=== PATIENT | female | born 1980 | race Caucasian/White ===

== ENCOUNTER 2018-03-02 08:44 | Outpatient (CLI) | payer OTHER ==
--- NOTE | 2018-03-02 13:02 | DEXA Report ---
Procedure Date: 03/02/2018 Accession Number: [id number] / [id number] Procedure: DEX - Dexa Spine and/or Hip CPT Code: FULL RESULT: EXAM: Dexa Spine and/or Hip DATE: 03/02/2018 9:15 AM CLINICAL HISTORY: OSTEOPENIA TECHNIQUE: Dual energy x-ray absorptiometry (DXA) was performed on a [employer] System. Regions measured are the AP Spine, femoral neck, and if needed forearm. COMPARISON: None. In accordance with the International Society for Clinical Densitometry (ISCD) guidelines, data from previous exams may be reanalyzed using current recommendations and techniques. This is done to allow a more accurate basis for comparison with the current study. FINDINGS: The data for the lumbar spine is as follows: BMD (g/cm/cm) T-SCORE Z-SCORE REGION L1 1.003 -1.1 -1.7 L2 1.191 -0.1 -0.8 L3 1.247 0.4 -0.3 L4 1.209 0.1 -0.6 TOTAL 1.169 -0.1 -0.8 NOTE: All evaluable vertebrae are used for classification The data for the hip is as follows: BMD (g/cm/cm) T-SCORE Z-SCORE REGION Neck 0.901 -1.0 -1.1 TOTAL 0.937 -0.6 -0.9 NOTE: The femoral neck or total proximal femur, whichever is lowest, is used for classification. IMPRESSION: THE WHO CLASSIFICATION BASED ON THE INTERNATIONAL REFERENCE STANDARD IS NORMAL. THE FRACTURE RISK IS NOT INCREASED. RECOMMENDATION: Patients with diagnosis of osteoporosis or osteopenia should have regular bone mineral density assessment. For those eligible for Medicare, routine testing is allowed once every 2 years. Testing frequency can be increased for patients who have rapidly progressing disease or for those who are receiving medical therapy to restore bone mass. COMMENT: World Health Organization (WHO) definitions for osteoporosis and osteopenia: NORMAL BMD: T-score at -1.0 or higher, fracture risk is low OSTEOPENIA BMD: T-score between -1.0 and -2.5, fracture risk is increased. OSTEOPOROSIS BMD: T-score at -2.5 or lower, fracture risk is high. National Osteoporosis Foundation recommends: 1. Obtain adequate dietary calcium (at least 1200 mg per day) and vitamin D (400-800 international units per day). 2. Participate, as appropriate, in regular weightbearing and muscle-strengthening exercise. 3. Avoid tobacco use and reduce alcohol and caffeine intake. 4. For more detailed information see the website at www.NOF.org.
== END 2018-03-02 08:45 | disposition home or self-care (01) ==
LOC: DI 08:44
PROVIDERS: ATTEND Nurse Practitioner Gerontology
DX: M85.80 Other specified disorders of bone density and structure, unspecified site (principal)
CPT/HCPCS: 77080

== ENCOUNTER 2018-04-27 13:53 | Outpatient (CLI) | payer OTHER | END 2018-04-27 13:54 | disposition home or self-care (01) | LOC: LAB.WCP 13:53 | PROVIDERS: ATTEND Physician Assistant Medical | DX: Z33.1 Pregnant state, incidental (principal) | CPT/HCPCS: 36415; 84702 ==

== ENCOUNTER 2018-10-25 08:00 | Outpatient (CLI) | payer OTHER ==
[2018-10-25 14:31] LABS: BASOPHILS % (AUTO) 0.2 %; EOSINOPHILS # (AUTO) 0.1 10^3/uL (0.0-0.7); EOSINOPHILS % (AUTO) 0.8 %; HGB - HEMOGLOBIN 11.8 g/dL (12.0-16.0); LYMPHOCYTES # (AUTO) 1.3 10^3/uL (1.5-3.5); LYMPHOCYTES % (AUTO) 15.5 %; MEAN CORPUSCULAR HEMOGLOBIN 32.4 pg (27.0-31.0); MEAN CORPUSCULAR HGB CONC 34.5 g/dL (32.0-36.0); MEAN CORPUSCULAR VOLUME 93.9 fL (81.0-99.0); MEAN PLATELET VOLUME 9.6 fL (7.9-10.8); MONOCYTES # (AUTO) 0.5 10^3/uL (0.0-1.0); MONOCYTES % (AUTO) 6.1 %; NEUTROPHILS # (AUTO) 6.5 10^3/uL (1.5-6.6); NEUTROPHILS % (AUTO) 77.4 %; PLT - PLATELET COUNT 145 10^3/uL (130-450); RED BLOOD COUNT 3.66 10^6/uL (4.20-5.40); WHITE BLOOD COUNT 8.4 x10^3/uL (4.8-10.8)
[2018-10-25 16:59] LABS: ALBUMIN 3.5 g/dL (3.2-5.5); ALBUMIN/GLOBULIN RATIO 1.1 (1.0-2.2); ALKALINE PHOSPHATASE 61 IU/L (42-121); ALT ALANINE AMINOTRANSFERASE 16 IU/L (10-60); AST ASPARTATE AMINOTRANSFERASE 21 IU/L (10-42); BILIRUBIN,TOTAL 0.5 mg/dL (0.2-1.0); BUN - BLOOD UREA NITROGEN 6 mg/dL (6-20); CALCIUM 8.8 mg/dL (8.5-10.3); CARBON DIOXIDE - CO2 23 mmol/L (21-32); CHLORIDE 105 mmol/L (101-111); CHOL/HDL RATIO 3.2 (<4.4); CHOLESTEROL 238 mg/dL; CREATININE 0.4 mg/dL (0.4-1.0); GFR - MDRD 180 (>89); GLUCOSE 87 mg/dL (70-100); HDL CHOLESTEROL 74 mg/dL; LDL CHOLESTEROL,CALCULATED 132 mg/dL; LDL/HDL RATIO 1.8 (<4.4); SODIUM 136 mmol/L (135-145); TOTAL PROTEIN 6.7 g/dL (6.7-8.2); VLDL CHOLESTEROL 32 mg/dL
== END 2018-10-25 23:59 | disposition home or self-care (01) ==
LOC: LAB.WCP 08:00
PROVIDERS: ATTEND Physician Assistant Medical
DX: Z13.9 Encounter for screening, unspecified (principal)
CPT/HCPCS: 36415; 80050; 80061; 83721

== ENCOUNTER 2020-04-24 08:00 | Outpatient (CLI) | payer OTHER | END 2020-04-24 23:59 | disposition home or self-care (01) | LOC: LAB.R 08:00 | PROVIDERS: ATTEND Physician Assistant Medical | DX: R30.0 Dysuria (principal) | CPT/HCPCS: 87086; 87181 ==

== ENCOUNTER 2020-08-20 07:00 | Outpatient (CLI) | payer OTHER | END 2020-08-20 23:59 | disposition home or self-care (01) | LOC: LAB.R 07:00 | PROVIDERS: ATTEND Family Medicine | DX: N39.0 Urinary tract infection, site not specified (principal) | CPT/HCPCS: 87077; 87086; 87181 ==

== ENCOUNTER 2020-12-13 08:00 | Outpatient (CLI) | payer OTHER ==
[2020-12-13 13:05] LABS: BASOPHILS % (AUTO) 0.4 %; EOSINOPHILS # (AUTO) 0.1 10^3/uL (0.0-0.7); EOSINOPHILS % (AUTO) 4.9 %; HCT - HEMATOCRIT 40.8 % (37.0-47.0); HGB - HEMOGLOBIN 13.4 g/dL (12.0-16.0); LYMPHOCYTES # (AUTO) 0.7 10^3/uL (1.5-3.5); MEAN CORPUSCULAR HEMOGLOBIN 34.4 pg (27.0-31.0); MEAN CORPUSCULAR HGB CONC 32.8 g/dL (32.0-36.0); MEAN CORPUSCULAR VOLUME 104.9 fL (81.0-99.0); MEAN PLATELET VOLUME 11.8 fL (7.9-10.8); MONOCYTES # (AUTO) 0.4 10^3/uL (0.0-1.0); MONOCYTES % (AUTO) 13.3 %; NEUTROPHILS # (AUTO) 1.4 10^3/uL (1.5-6.6); NEUTROPHILS % (AUTO) 53.4 %; PLT - PLATELET COUNT 113 10^3/uL (130-450); RED BLOOD COUNT 3.89 10^6/uL (4.20-5.40); RED CELL DISTRIBUTION WIDTH 12.2 % (12.0-15.0); WHITE BLOOD COUNT 2.6 x10^3/uL (4.8-10.8)
[2020-12-13 13:11] LABS: SLIDE REVIEW? Indicated
[2020-12-13 13:23] LABS: ALBUMIN 4.4 g/dL (3.2-5.5); ALBUMIN/GLOBULIN RATIO 1.6 (1.0-2.2); ALKALINE PHOSPHATASE 53 IU/L (42-121); ALT ALANINE AMINOTRANSFERASE 91 IU/L (10-60); AST ASPARTATE AMINOTRANSFERASE 63 IU/L (10-42); BILIRUBIN,TOTAL 1.1 mg/dL (0.2-1.0); BUN - BLOOD UREA NITROGEN 9 mg/dL (6-20); CALCIUM 9.1 mg/dL (8.5-10.3); CARBON DIOXIDE - CO2 25 mmol/L (21-32); CHLORIDE 105 mmol/L (101-111); CHOL/HDL RATIO 1.9 (<4.4); CHOLESTEROL 176 mg/dL; CREATININE 0.6 mg/dL (0.4-1.0); GFR - MDRD 111 (>89); GLUCOSE 119 mg/dL (70-100); HDL CHOLESTEROL 93 mg/dL; LDL CHOLESTEROL,CALCULATED 74 mg/dL; LDL/HDL RATIO 0.8 (<4.4); POTASSIUM 4.2 mmol/L (3.5-5.0); SODIUM 138 mmol/L (135-145); TOTAL PROTEIN 7.2 g/dL (6.7-8.2); TRIGLYCERIDES 44 mg/dL; VLDL CHOLESTEROL 9 mg/dL
[2020-12-13 13:24] LABS: PLATELET ESTIMATE, MANUAL DECREASED (<130,000) (NORMAL); PLATELET MORPHOLOGY NORMAL APPEARANCE (NORMAL); RBC MORPHOLOGY (MULTIPLE) NORMAL APPEARANCE (NORMAL); WBC MORPHOLOGY (MULTIPLE) NORMAL APPEARANCE (NORMAL)
[2020-12-13 13:27] LABS: THYROID STIMULATING HORMONE 1.74 uIU/mL (0.34-5.60)
== END 2020-12-13 23:59 | disposition home or self-care (01) ==
LOC: LAB.WCP 08:00
PROVIDERS: ATTEND Physician Assistant Medical
DX: Z13.9 Encounter for screening, unspecified (principal)
CPT/HCPCS: 36415; 80050; 80061; 83721

== ENCOUNTER 2021-03-10 08:00 | Outpatient (CLI) | payer OTHER ==
[2021-03-10 12:42] LABS: BASOPHILS % (AUTO) 0.6 %; EOSINOPHILS # (AUTO) 0.2 10^3/uL (0.0-0.7); EOSINOPHILS % (AUTO) 4.9 %; HGB - HEMOGLOBIN 14.7 g/dL (12.0-16.0); LYMPHOCYTES # (AUTO) 0.8 10^3/uL (1.5-3.5); LYMPHOCYTES % (AUTO) 25.5 %; MEAN CORPUSCULAR HEMOGLOBIN 35.5 pg (27.0-31.0); MEAN CORPUSCULAR HGB CONC 33.4 g/dL (32.0-36.0); MEAN CORPUSCULAR VOLUME 106.3 fL (81.0-99.0); MEAN PLATELET VOLUME 10.9 fL (7.9-10.8); MONOCYTES # (AUTO) 0.4 10^3/uL (0.0-1.0); MONOCYTES % (AUTO) 13.4 %; NEUTROPHILS # (AUTO) 1.8 10^3/uL (1.5-6.6); NEUTROPHILS % (AUTO) 55.3 %; PLT - PLATELET COUNT 182 10^3/uL (130-450); RED BLOOD COUNT 4.14 10^6/uL (4.20-5.40); RED CELL DISTRIBUTION WIDTH 12.4 % (12.0-15.0); WHITE BLOOD COUNT 3.3 x10^3/uL (4.8-10.8)
[2021-03-10 12:59] LABS: ALBUMIN 4.6 g/dL (3.2-5.5); ALBUMIN/GLOBULIN RATIO 1.5 (1.0-2.2); BILIRUBIN,TOTAL 0.9 mg/dL (0.2-1.0); CALCIUM 9.4 mg/dL (8.5-10.3); CREATININE 0.8 mg/dL (0.4-1.0); POTASSIUM 4.2 mmol/L (3.5-5.0); TOTAL PROTEIN 7.6 g/dL (6.7-8.2)
[2021-03-10 19:23] LABS: ESTIMATED AVERAGE GLUCOSE 100 mg/dL (70-100); HEMOGLOBIN A1c% 5.1 % (4.27-6.07)
== END 2021-03-10 23:59 | disposition home or self-care (01) ==
LOC: LAB.WCP 08:00
PROVIDERS: ATTEND Physician Assistant Medical
DX: R73.9 Hyperglycemia, unspecified (principal); R74.8 Abnormal levels of other serum enzymes; D72.819 Decreased white blood cell count, unspecified
CPT/HCPCS: 36415; 80053; 83036; 85025

== ENCOUNTER 2021-08-19 08:00 | Outpatient (CLI) | payer OTHER | END 2021-08-19 23:59 | LOC: LAB.N 08:00 | PROVIDERS: ATTEND Physician Assistant | DX: R39.9 Unspecified symptoms and signs involving the genitourinary system (principal) | CPT/HCPCS: 87086 ==

== ENCOUNTER 2021-08-26 08:00 | Outpatient (CLI) | payer OTHER ==
[2021-08-26 11:36] LABS: BASOPHILS % (AUTO) 0.8 %; EOSINOPHILS # (AUTO) 0.2 10^3/uL (0.0-0.7); EOSINOPHILS % (AUTO) 4.2 %; HCT - HEMATOCRIT 43.2 % (37.0-47.0); HGB - HEMOGLOBIN 14.5 g/dL (12.0-16.0); LYMPHOCYTES # (AUTO) 1.2 10^3/uL (1.5-3.5); LYMPHOCYTES % (AUTO) 32.3 %; MEAN CORPUSCULAR HEMOGLOBIN 35.1 pg (27.0-31.0); MEAN CORPUSCULAR HGB CONC 33.6 g/dL (32.0-36.0); MEAN CORPUSCULAR VOLUME 104.6 fL (81.0-99.0); MEAN PLATELET VOLUME 10.9 fL (7.9-10.8); MONOCYTES # (AUTO) 0.4 10^3/uL (0.0-1.0); MONOCYTES % (AUTO) 10.5 %; NEUTROPHILS % (AUTO) 51.9 %; PLT - PLATELET COUNT 155 10^3/uL (130-450); RED BLOOD COUNT 4.13 10^6/uL (4.20-5.40); RED CELL DISTRIBUTION WIDTH 11.9 % (12.0-15.0); WHITE BLOOD COUNT 3.8 x10^3/uL (4.8-10.8)
[2021-08-26 12:14] LABS: ALBUMIN 4.8 g/dL (3.2-5.5); ALBUMIN/GLOBULIN RATIO 1.6 (1.0-2.2); BILIRUBIN,TOTAL 0.9 mg/dL (0.2-1.0); CALCIUM 9.1 mg/dL (8.5-10.3); CREATININE 0.7 mg/dL (0.4-1.0); TOTAL PROTEIN 7.8 g/dL (6.7-8.2)
[2021-08-26 12:46] LABS: ESTIMATED AVERAGE GLUCOSE 97 mg/dL (70-100)
[2021-08-27 09:21] LABS: HEPATITIS C ANTIBODY NON-REACTIVE (NON-REACTIVE)
[2021-08-27 09:22] LABS: HEPATITIS B SURFACE ANTIGEN NON-REACTIVE (NON-REACTIVE)
== END 2021-08-26 23:59 | disposition home or self-care (01) ==
LOC: LAB.WCP 08:00
PROVIDERS: ATTEND Physician Assistant Medical
DX: R73.9 Hyperglycemia, unspecified (principal); R74.8 Abnormal levels of other serum enzymes; D72.819 Decreased white blood cell count, unspecified
CPT/HCPCS: 36415; 80053; 83036; 85025; 86317; 86704; 86709; 86803; 87340

== ENCOUNTER 2021-09-15 07:42 | Outpatient (CLI) | payer OTHER ==
--- NOTE | 2021-09-15 09:24 | Ultrasound Report ---
PROCEDURE: Abdomen Limited INDICATIONS: ELEVATED LIVER ENZYMES TECHNIQUE: Real-time scanning was performed of the abdominal and retroperitoneal organs, with image documentatio n. COMPARISON: None. FINDINGS: Liver: Liver is enlarged measuring 19.3 cm and demonstrates increased echogenicity.. Gallbladder: Gallbladder is trace no stones. Wall thickness measures 1.4 mm. Biliary ducts: Intrahepatic bile ducts are non-dilated. Extrahepatic bile duct caliber measures 4.6 mm. Normal is 6-7 mm or less in diameter, or 10 mm or less post-cholecystectomy. Pancreas: Visualized portions of the pancreas are sonographically normal. Kidneys: Right kidney measures 11.2 cm long. No hydronephrosis or nephrolithiasis. No solid masses . Aorta: Visualized aorta is normal in caliber at less than 3 cm. IMPRESSION: Hepatomegaly with steatosis. Reviewed by: Lis Rincon MD on 09/15/2021 9:23 AM PST Approved by: Lis Rincon MD on 09/15/2021 9:23 AM PST Station ID: [id number]
== END 2021-09-15 07:43 | disposition home or self-care (01) ==
LOC: DI 07:42
PROVIDERS: ATTEND Physician Assistant Medical
DX: R74.8 Abnormal levels of other serum enzymes (principal); K76.0 Fatty (change of) liver, not elsewhere classified; R16.0 Hepatomegaly, not elsewhere classified

== ENCOUNTER 2021-12-29 11:03 | Outpatient (CLI) | payer OTHER ==
--- NOTE | 2021-12-30 16:06 | Mammography Report ---
BILATERAL DIGITAL SCREENING MAMMOGRAM 3D/2D: 12/29/2021 CLINICAL: Baseline exam Routine screening. No prior exams were available for comparison. The tissue of both breasts is heterogeneously dense. T his may lower the sensitivity of mammography. There is a 0.8 cm x 0.5 cm oval mass with a microlobulated margin in the right breast at 7 o'clock mi ddle depth 8 cm from the nipple. There also is a benign lymph node in the right breast at 11 o'clock posterior depth. There is a benign lymph node in the left breast at 1 o'clock middle depth. No other significant masses or calcifications are seen in either breast. IMPRESSION: INCOMPLETE: NEEDS ADDITIONAL IMAGING EVALUATION The 0.8 cm x 0.5 cm oval mass in the right breast at 7 o'clock middle depth is consistent with a sandro d mass or a lymph node and is indeterminate. Additional views with possible ultrasound are recommend ed. This exam was interpreted at Station ID: [id number]. NOTE: For mammograms, a report in lay terms will be sent to the patient. Approximately 15% of breast malignancies will not be visualized mammographically. In the management of a palpable breast mass, a negative mammogram must not discourage biopsy of a clinically suspicious lesion. Electronically Signed By: Loki Victoria acr/:12/29/2021 15:14:27 ACR BI-RADS Category 0: Incomplete 3340F PARENCHYMAL PATTERN: (D) - The breast(s) demonstrate(s) heterogeneously dense fibroglandular parenchy ma. BI-RADS CATEGORY: (0) - 0 Mammo and [place] [id number] Immediate follow-up LATERALITY: (R)
== END 2021-12-29 11:04 | disposition home or self-care (01) ==
LOC: DI.N 11:03
PROVIDERS: ATTEND Physician Assistant Medical
DX: Z12.31 Encounter for screening mammogram for malignant neoplasm of breast (principal); R92.8 Other abnormal and inconclusive findings on diagnostic imaging of breast

== ENCOUNTER 2022-08-26 07:05 | Outpatient (CLI) | payer OTHER ==
[2022-08-26 07:48] LABS: BASOPHILS % (AUTO) 0.5 %; EOSINOPHILS # (AUTO) 0.2 10^3/uL (0.0-0.7); EOSINOPHILS % (AUTO) 4.8 %; HGB - HEMOGLOBIN 14.4 g/dL (12.0-16.0); LYMPHOCYTES # (AUTO) 1.2 10^3/uL (1.5-3.5); LYMPHOCYTES % (AUTO) 31.3 %; MEAN CORPUSCULAR HEMOGLOBIN 34.4 pg (27.0-31.0); MEAN CORPUSCULAR HGB CONC 32.7 g/dL (32.0-36.0); MONOCYTES # (AUTO) 0.5 10^3/uL (0.0-1.0); MONOCYTES % (AUTO) 12.8 %; NEUTROPHILS # (AUTO) 1.9 10^3/uL (1.5-6.6); NEUTROPHILS % (AUTO) 50.3 %; PLT - PLATELET COUNT 133 10^3/uL (130-450); RED BLOOD COUNT 4.19 10^6/uL (4.20-5.40); RED CELL DISTRIBUTION WIDTH 12.4 % (12.0-15.0); WHITE BLOOD COUNT 3.7 x10^3/uL (4.8-10.8)
[2022-08-26 08:07] LABS: ALBUMIN/GLOBULIN RATIO 1.7 (1.0-2.2); ALKALINE PHOSPHATASE 57 IU/L (42-121); ALT ALANINE AMINOTRANSFERASE 144 IU/L (10-60); AST ASPARTATE AMINOTRANSFERASE 114 IU/L (10-42); BILIRUBIN,TOTAL 1.3 mg/dL (0.2-1.0); BUN - BLOOD UREA NITROGEN 11 mg/dL (6-20); CALCIUM 9.2 mg/dL (8.5-10.3); CARBON DIOXIDE - CO2 27 mmol/L (21-32); CHLORIDE 101 mmol/L (101-111); CHOL/HDL RATIO 2.5 (<4.4); CHOLESTEROL 234 mg/dL; CREATININE 0.6 mg/dL (0.4-1.0); GFR - MDRD 110 (>89); GLUCOSE 116 mg/dL (70-100); HDL CHOLESTEROL 95 mg/dL; LDL CHOLESTEROL,CALCULATED 130 mg/dL; LDL/HDL RATIO 1.4 (<4.4); POTASSIUM 4.7 mmol/L (3.5-5.0); SODIUM 138 mmol/L (135-145); TRIGLYCERIDES 46 mg/dL; VLDL CHOLESTEROL 9 mg/dL
[2022-08-26 08:18] LABS: THYROID STIMULATING HORMONE 1.49 uIU/mL (0.34-5.60)
[2022-08-26 08:33] LABS: ESTIMATED AVERAGE GLUCOSE 97 mg/dL (70-100)
--- NOTE | 2022-08-26 14:09 | Ultrasound Report ---
PROCEDURE: Abdomen Limited INDICATIONS: ELEVATED LIVER ENZYMES TECHNIQUE: Real-time focused scanning was performed of the abdomen, with image documentation. COMPARISON: None FINDINGS: Liver: Liver shows diffusely decreased attenuation without focal mass lesion. Gallbladder: Sonolucent without cholelithiasis. No gallbladder wall thickening. No pericholecystic fluid or Patel's sign. Common Bile Duct: 4.7 mm. Pancreas: Unremarkable as visualized. Right Kidney: Appropriate in size and echotexture. No evidence of hydronephrosis. No shadowing calc alfie. No solid or cystic mass lesion. IMPRESSION: Hepatic fatty infiltration without focal mass lesion Reviewed by: Zak Prieto MD on 08/26/2022 1:08 PM AKST Approved by: Zak Prieto MD on 08/26/2022 1:08 PM AKST Station ID: [id number]
== END 2022-08-26 07:06 | disposition home or self-care (01) ==
LOC: DI 07:05
PROVIDERS: ATTEND Physician Assistant Medical
DX: K76.0 Fatty (change of) liver, not elsewhere classified (principal); Z13.9 Encounter for screening, unspecified; R73.9 Hyperglycemia, unspecified
CPT/HCPCS: 36415; 80050; 80061; 83036; 83721

== ENCOUNTER 2022-11-28 13:45 | Outpatient (CLI) | payer OTHER ==
[2022-11-28 19:19] LABS: BASOPHILS % (AUTO) 0.4 %; EOSINOPHILS # (AUTO) 0.3 10^3/uL (0.0-0.7); EOSINOPHILS % (AUTO) 6.1 %; HCT - HEMATOCRIT 42.8 % (37.0-47.0); HGB - HEMOGLOBIN 14.3 g/dL (12.0-16.0); LYMPHOCYTES # (AUTO) 1.2 10^3/uL (1.5-3.5); LYMPHOCYTES % (AUTO) 24.2 %; MEAN CORPUSCULAR HEMOGLOBIN 34.5 pg (27.0-31.0); MEAN CORPUSCULAR HGB CONC 33.4 g/dL (32.0-36.0); MEAN CORPUSCULAR VOLUME 103.4 fL (81.0-99.0); MEAN PLATELET VOLUME 11.7 fL (7.9-10.8); MONOCYTES # (AUTO) 0.6 10^3/uL (0.0-1.0); MONOCYTES % (AUTO) 11.6 %; NEUTROPHILS # (AUTO) 2.8 10^3/uL (1.5-6.6); NEUTROPHILS % (AUTO) 57.5 %; PLT - PLATELET COUNT 153 10^3/uL (130-450); RED BLOOD COUNT 4.14 10^6/uL (4.20-5.40); RED CELL DISTRIBUTION WIDTH 12.3 % (12.0-15.0); WHITE BLOOD COUNT 4.9 x10^3/uL (4.8-10.8)
[2022-11-28 19:52] LABS: ALBUMIN/GLOBULIN RATIO 1.8 (1.0-2.2); ALKALINE PHOSPHATASE 65 IU/L (42-121); ALT ALANINE AMINOTRANSFERASE 175 IU/L (10-60); AST ASPARTATE AMINOTRANSFERASE 130 IU/L (10-42); BILIRUBIN,TOTAL 0.9 mg/dL (0.2-1.0); BUN - BLOOD UREA NITROGEN 11 mg/dL (6-20); CALCIUM 9.5 mg/dL (8.5-10.3); CARBON DIOXIDE - CO2 26 mmol/L (21-32); CHLORIDE 106 mmol/L (101-111); CREATININE 0.6 mg/dL (0.4-1.0); GFR - MDRD 110 (>89); GLUCOSE 108 mg/dL (70-100); LIPASE 41 U/L (22-51); SODIUM 137 mmol/L (135-145); TOTAL PROTEIN 7.8 g/dL (6.7-8.2)
[2022-11-28 19:53] LABS: CRP - C-REACTIVE PROTEIN < 1.0 mg/dL (0-1.0)
== END 2022-11-28 14:00 | disposition home or self-care (01) ==
LOC: LAB.N 13:45
PROVIDERS: ATTEND Registered Nurse
DX: K62.5 Hemorrhage of anus and rectum (principal); R10.11 Right upper quadrant pain
CPT/HCPCS: 36415; 80053; 83690; 85025; 86140

== ENCOUNTER 2023-01-20 10:49 | Emergency (ER) | payer OTHER ==
[2023-01-20 11:23] LABS: BASOPHILS % (AUTO) 0.3 %; EOSINOPHILS # (AUTO) 0.1 10^3/uL (0.0-0.7); EOSINOPHILS % (AUTO) 3.4 %; HCT - HEMATOCRIT 41.9 % (37.0-47.0); HGB - HEMOGLOBIN 14.2 g/dL (12.0-16.0); LYMPHOCYTES # (AUTO) 0.8 10^3/uL (1.5-3.5); LYMPHOCYTES % (AUTO) 21.9 %; MEAN CORPUSCULAR HEMOGLOBIN 35.2 pg (27.0-31.0); MEAN CORPUSCULAR HGB CONC 33.9 g/dL (32.0-36.0); MEAN PLATELET VOLUME 10.5 fL (7.9-10.8); MONOCYTES # (AUTO) 0.4 10^3/uL (0.0-1.0); NEUTROPHILS # (AUTO) 2.3 10^3/uL (1.5-6.6); NEUTROPHILS % (AUTO) 63.4 %; PLT - PLATELET COUNT 125 10^3/uL (130-450); RED BLOOD COUNT 4.03 10^6/uL (4.20-5.40); WHITE BLOOD COUNT 3.6 x10^3/uL (4.8-10.8)
[2023-01-20 11:35] LABS: ALBUMIN 4.7 g/dL (3.2-5.5); ALBUMIN/GLOBULIN RATIO 1.4 (1.0-2.2); BILIRUBIN,TOTAL 1.3 mg/dL (0.2-1.0); CREATININE 0.5 mg/dL (0.4-1.0); POTASSIUM 3.7 mmol/L (3.5-5.0); TOTAL PROTEIN 8.1 g/dL (6.7-8.2)
[2023-01-20] MEDS ORDERED: ONDANSETRON 4 MG/2 ML VIAL IVP STA (11:36)
[2023-01-20] MEDS ORDERED: SODIUM CHLORIDE 0.9% 1,000 ML IV STA (11:36)
--- NOTE | 2023-01-20 11:40 | ED Physician Documentation ---
History of Present Illness - Stated complaint Stated Complaint: DEHYDRATION - Chief complaint Chief Complaint: Abd Pain - Additonal information Additional information: 42-year-old female presents emergency department for concerns that she is excessively dehydrated. She reports that over the weekend she, her friends and family drank heavily. Since Wednesday multiple friends and family members have been having vomiting and diarrhea. Patient reports bright yellow diarrhea. She has not had diarrhea this morning and no vomiting since yesterday afternoon. Anytime she tries to eat she is nauseated. Patient denies melena, hematochezia or hemataemesis Patient does report to me that she has a history of abnormal and elevated liver function test. Reports she has been referred to GI but has not followed up. She has been told that it may be due to her drinking but it could also be BURGESS. Patient states she has not drank since Wednesday night. Has no signs of withdrawal. Has no history of DTs associate with alcohol cessation. Patient reports she spoke with her primary care provider I was told to come to the ER for thiamine/folate infusion. Patient is without fever, abdominal pain or altered mental status Review of Systems Constitutional: denies: Fever Throat: reports: Reviewed and negative Cardiac: reports: Reviewed and negative Respiratory: reports: Reviewed and negative GI: reports: Nausea, Vomiting, Diarrhea. denies: Abdominal Pain, Hematemesis, Bloody / black stool : reports: Reviewed and negative Skin: reports: Reviewed and negative Musculoskeletal: reports: Reviewed and negative Neurologic: reports: Reviewed and negative PD PAST MEDICAL HISTORY - Past Medical History Musculoskeletal: Osteoporosis - Past Surgical History Past Surgical History: Yes - Present Medications Home Medications: Ambulatory Orders Medication Instructions Recorded Confirmed Fluoxetine HCl [Prozac] 10 mg PO 09/21/13 03/28/15 Spironolactone 25 mg PO BID 09/21/13 03/28/15 Hydrocodone/Acetaminophen 1 each PO Q6HR PRN #20 tablet 03/28/15 [Hydrocodon-Acetaminophen 5-325] Ondansetron Odt [Zofran] 4 mg TL Q6H PRN #10 tablet 01/20/23 - Allergies Allergies/Adverse Reactions: Allergies Allergy/AdvReac Type Severity Reaction Status Date / Time NSAIDS (Non-Steroidal Allergy Unknown Verified 01/20/23 10:53 Anti-Inflamma - Social History Does the pt smoke?: No Smoking Status: Never smoker Does the pt drink ETOH?: Yes Does the pt have substance abuse?: No - Immunizations Immunizations are current?: Yes - POLST Patient has POLST: No PD ED PE NORMAL - General General: Alert and oriented X 3, No acute distress, Well developed/nourished - HEENT HEENT: Atraumatic, Moist mucous membranes - Neck Neck: Supple, no meningeal sign, No adenopathy - Cardiac Cardiac: RRR, No murmur - Respiratory Respiratory: No respiratory distress, Clear bilaterally - Abdomen Abdomen: Normal bowel sounds, Soft, Non tender (No tenderness elicited with light or deep palpation. 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 Eye Opening: Spontaneous Motor: Obeys Commands Verbal: Oriented GCS Score: 15 Results - Vitals Vitals: Vital Signs - 24 hr 01/20/23 01/20/23 10:53 11:26 Temperature 36.5 C Heart Rate 82 87 Respiratory 18 15 Rate Blood Pressure 150/100 H 139/95 H O2 Saturation 99 97 Oxygen O2 Source Room air - Labs Labs: Laboratory Tests 01/20/23 01/20/23 01/20/23 11:17 11:17 11:39 WBC 3.6 L RBC 4.03 L Hgb 14.2 Hct 41.9 MCV 104.0 H MCH 35.2 H MCHC 33.9 RDW 12.0 Plt Count 125 L MPV 10.5 Neut # (Auto) 2.3 Lymph # (Auto) 0.8 L [place] # (Auto) 0.4 Eos # (Auto) 0.1 Baso # (Auto) 0.0 Absolute Nucleated RBC 0.00 Nucleated RBC % 0.0 Sodium 135 Potassium 3.7 Chloride 102 Carbon Dioxide 24 Anion Gap 9.0 BUN 6 Creatinine 0.5 Estimated GFR (MDRD) 135 Glucose 108 H Calcium 9.0 Total Bilirubin 1.3 H AST 157 H ALT 165 H Alkaline Phosphatase 66 Total Protein 8.1 Albumin 4.7 Globulin 3.4 Albumin/Globulin Ratio 1.4 Lipase 36 Urine Color YELLOW Urine Clarity CLEAR Urine pH 8.0 H Ur Specific [place] 1.020 Urine Protein NEGATIVE Urine Glucose (UA) NEGATIVE Urine Ketones 40 H Urine Occult Blood NEGATIVE Urine Nitrite NEGATIVE Urine Bilirubin NEGATIVE Urine Urobilinogen 1 (NORMAL) Ur Leukocyte Esterase NEGATIVE Ur Microscopic Review NOT INDICATED Urine Culture Comments NOT INDICATED Urine HCG, Qual 01/20/23 11:39 WBC RBC Hgb Hct MCV MCH MCHC RDW Plt Count MPV Neut # (Auto) Lymph # (Auto) [place] # (Auto) Eos # (Auto) Baso # (Auto) Absolute Nucleated RBC Nucleated RBC % Sodium Potassium Chloride Carbon Dioxide Anion Gap BUN Creatinine Estimated GFR (MDRD) Glucose Calcium Total Bilirubin AST ALT Alkaline Phosphatase Total Protein Albumin Globulin Albumin/Globulin Ratio Lipase Urine Color Urine Clarity Urine pH Ur Specific [place] Urine Protein Urine Glucose (UA) Urine Ketones Urine Occult Blood Urine Nitrite Urine Bilirubin Urine Urobilinogen Ur Leukocyte Esterase Ur Microscopic Review Urine Culture Comments Urine HCG, Qual NEGATIVE PD Medical Decision Making - ED course Complexity details: reviewed results, re-evaluated patient, d/w patient ED course: 42-year-old female presents emergency department for concerns of dehydration in the setting of vomiting and diarrhea that she had for 2 days. No vomiting since last night no diarrhea since early this a.m. Multiple family members including her young daughter at home have had similar. As such I suspect that this is a viral enteritis. On presentation the patient is alert and well-appearing. She has no tachycardia or hypotension. No fevers. Patient is concerned that the drinking this weekend could be causative of her vomiting and diarrhea. She is also concerned because she has been told she has elevated liver tests in the past and has referral to GI pending. I did obtain a CBC and electrolytes. Per my interpretation there is no worrisome anemia. White blood cell count mildly decreased but this appears unchanged from baseline. She does not have thrombocytopenia. Her electrolytes show a normal BUN and creatinine. She does have elevated T. bili of 1.3. Historically she is been 0.9-1.3. She does have an AST ALT elevation of 157 and 165 respectively. In comparison to previous labs, essentially unchanged. The patient queries whether she has alcoholic hepatitis or BURGESS. Given that the elevation is symmetrical I suspect this is more likely BURGESS though the history of heavy drinking is likely contributing. I deferred any imaging today as the abnormal liver function test are not new. In addition there was no abdominal tenderness elicited on exam making the likelihood of acute cholecystitis unlikely Here in the emergency department I did give the patient a liter of IV fluids as well as some Zofran and on reevaluation her nausea is improved. Patient did request thiamine and folate supplementation though as she does not appear encephalopathic I did not feel this was warranted today. She is tolerating sips of clear liquids at this time I offered the patient [facility] resources to consider alcohol cessation though she declines. Denies any history of DTs. She will continue to follow closely with the GI referral already pending. I encouraged the patient to abstain from alcohol if able as this is likely contributing to her symptoms. The usual emergent return precautions were discussed. Departure - Departure Disposition: 01 Home, Self Care Clinical Impression: Nausea vomiting and diarrhea, Abnormal LFTs (liver function tests), Alcohol abuse Condition: Stable Prescriptions: Ondansetron Odt [Zofran] 4 mg TL Q6H PRN #10 tablet PRN Reason: Nausea / Vomiting Comments: Marilynn you came to the emergency department today because your provider recommended you receive some IV fluids for dehydration. You do report drinking heavily this weekend. You report that multiple family members as well as friends have had vomiting and diarrhea. You all are likely sharing the same virus causing the vomiting and diarrhea. However your particular with concern also focused on history of abnormal liver function test. It is not clear to us today if your LFT abnormalities are due to fatty liver or if this could also be worsened by history of alcohol abuse. I encourage you to discontinue drinking. Continue to follow closely with the hot plate press operator that you have been referred to. I have written a prescription for Zofran, nausea medicine and sent to the [facility] in [place]. You should take this 2-3 times a day for the next 24 hours. I recommend frequent sips of water, broth, Gatorade or juice. As your nausea and hydration improved, begin eating simple soup foods like bananas, rice, applesauce and toast Return to the emergency department if you have uncontrolled symptoms despite the Zofran, have any black or bloody stools.
[2023-01-20 11:49] LABS: BILIRUBIN,URINE NEGATIVE (NEGATIVE); GLUCOSE, URINE (UA) NEGATIVE (NEGATIVE); KETONES,URINE (UA) 40 mg/dL (NEGATIVE); LEUKOCYTE ESTERASE, URINE NEGATIVE (NEGATIVE); NITRITE,URINE NEGATIVE (NEGATIVE); OCCULT BLOOD,URINE NEGATIVE (NEGATIVE); PROTEIN,URINE NEGATIVE (NEGATIVE); UROBILINOGEN,URINE 1 (NORMAL) E.U./dL (NORMAL)
[2023-01-20 11:50] LABS: CLARITY,URINE CLEAR (CLEAR)
[2023-01-20 12:19] LABS: HCG UR QUAL NEGATIVE
[2023-01-20 12:44] VITALS: BP 136/91
== END 2023-01-20 12:45 | disposition home or self-care (01) ==
LOC: ED 10:49
DX: R11.2 Nausea with vomiting, unspecified (principal); R19.7 Diarrhea, unspecified; R74.01 Elevation of levels of liver transaminase levels; F10.10 Alcohol abuse, uncomplicated
CPT/HCPCS: 36415; 80053; 81001; 81003; 81025; 83690; 85025; 87086; 96374; 99284

== ENCOUNTER 2023-12-07 15:30 | Outpatient (CLI) | payer OTHER ==
--- NOTE | 2023-12-15 10:00 | Mammography Report ---
BILATERAL DIGITAL SCREENING MAMMOGRAM 3D/2D: 12/07/2023 CLINICAL: Routine screening. Comparison is made to exam dated: 12/29/2021 mammogram - [facility]. There are scattered areas of fibroglandular density in both breasts (category b / 25%-50% glandular t issue). No significant masses, calcifications, or other findings are seen in either breast. There has been no significant interval change. IMPRESSION: NEGATIVE There is no mammographic evidence of malignancy. A 1 year screening mammogram is recommended. Based on the Tyrer Cuzick model (a risk assessment model) the patient's lifetime risk is 7.1% and her 10 year risk is 1.0%. According to the ACR, ACS, and NCCN guidelines, an annual breast MRI exam dion g with mammogram is recommended if the patient's lifetime risk is 20% or greater. This exam was interpreted at Station ID: [id number]. NOTE: For mammograms, a report in lay terms will be sent to the patient. Approximately 15% of breast malignancies will not be visualized mammographically. In the management of a palpable breast mass, a negative mammogram must not discourage biopsy of a clinically suspicious lesion. Electronically Signed By: Ed thomas/lindsey:12/14/2023 16:37:09 letter sent: No_Letter ACR BI-RADS Category 1: Negative 3341F PARENCHYMAL PATTERN: (A) - The breast(s) demonstrate(s) scattered fibroglandular densities. BI-RADS CATEGORY: (1) - 1 RECOMMENDATION: (ANNUAL) - Recommend routine annual screening mammography. [id number] 1 year screening LATERALITY: (B)
== END 2023-12-07 15:31 | disposition home or self-care (01) ==
LOC: DI.N 15:30
DX: Z12.31 Encounter for screening mammogram for malignant neoplasm of breast (principal); R92.323 Mammographic fibroglandular density, bilateral breasts

== ENCOUNTER 2024-02-17 07:43 | Outpatient (CLI) | payer OTHER ==
[2024-02-17 12:14] LABS: BASOPHILS % (AUTO) 0.6 %; EOSINOPHILS # (AUTO) 0.3 10^3/uL (0.0-0.7); EOSINOPHILS % (AUTO) 6.5 %; LYMPHOCYTES # (AUTO) 1.5 10^3/uL (1.5-3.5); LYMPHOCYTES % (AUTO) 28.4 %; MEAN CORPUSCULAR HEMOGLOBIN 33.3 pg (27.0-31.0); MEAN CORPUSCULAR HGB CONC 32.6 g/dL (32.0-36.0); MEAN PLATELET VOLUME 11.1 fL (7.9-10.8); MONOCYTES # (AUTO) 0.5 10^3/uL (0.0-1.0); MONOCYTES % (AUTO) 8.8 %; NEUTROPHILS # (AUTO) 2.9 10^3/uL (1.5-6.6); NEUTROPHILS % (AUTO) 55.5 %; PLT - PLATELET COUNT 184 10^3/uL (130-450); RED BLOOD COUNT 4.51 10^6/uL (4.20-5.40); RED CELL DISTRIBUTION WIDTH 12.5 % (12.0-15.0); WHITE BLOOD COUNT 5.3 x10^3/uL (4.8-10.8)
[2024-02-17 12:47] LABS: ALBUMIN 4.7 g/dL (3.2-5.5); ALBUMIN/GLOBULIN RATIO 1.6 (1.0-2.2); ALKALINE PHOSPHATASE 49 IU/L (42-121); ALT ALANINE AMINOTRANSFERASE 26 IU/L (10-60); AST ASPARTATE AMINOTRANSFERASE 17 IU/L (10-42); BILIRUBIN,TOTAL 0.4 mg/dL (0.2-1.0); BUN - BLOOD UREA NITROGEN 13 mg/dL (6-20); CALCIUM 9.9 mg/dL (8.5-10.3); CARBON DIOXIDE - CO2 30 mmol/L (21-32); CHLORIDE 103 mmol/L (101-111); CHOL/HDL RATIO 2.5 (<4.4); CHOLESTEROL 164 mg/dL; CREATININE 0.7 mg/dL (0.6-1.3); GFR - MDRD 91 (>89); GLUCOSE 108 mg/dL (74-104); HDL CHOLESTEROL 65 mg/dL; LDL CHOLESTEROL,CALCULATED 81 mg/dL; LDL/HDL RATIO 1.2 (<4.4); POTASSIUM 4.2 mmol/L (3.5-4.5); SODIUM 137 mmol/L (135-145); TOTAL PROTEIN 7.6 g/dL (6.4-8.9); TRIGLYCERIDES 92 mg/dL (48-352); VLDL CHOLESTEROL 18 mg/dL
[2024-02-17 13:08] LABS: ESTIMATED AVERAGE GLUCOSE 103 mg/dL (70-100); HEMOGLOBIN A1c% 5.2 % (4.27-6.07)
== END 2024-02-17 07:44 | disposition home or self-care (01) ==
LOC: LAB.N 07:43
PROVIDERS: ATTEND Physician Assistant Medical
DX: R53.83 Other fatigue (principal); Z13.9 Encounter for screening, unspecified; R73.9 Hyperglycemia, unspecified
CPT/HCPCS: 36415; 80050; 80061; 82607; 83036; 83721

== ENCOUNTER 2024-03-31 11:22 | Day surgery (SDC) | payer OTHER ==
[~2024-03-31 11:22] MED LIST: PROPOFOL 500 MG/50 ML 500 MG/50 ML VIAL ONE
[2024-03-31] MEDS: LACTATED RINGERS 1,000 ML IV ONE ×2 (11:25→13:15)
--- NOTE | 2024-03-31 12:11 | ANESTHESIA ---
Pre-Anesthesia VS, & Labs - Diagnosis BLOOD IN STOOL - Procedure COLONOSCOPY Vital Signs: Temp Pulse Resp BP Pulse Ox O2 Flow Rate 36.8 C 76 18 127/85 H 97 03/31/24 11:43 03/31/24 11:43 03/31/24 11:43 03/31/24 11:43 03/31/24 11:43 Height: 5 ft 9 in Weight (kg): 79.6 kg Body Mass Index: 25.9 BMI Classification: Overweight - NPO >8 hours - Is Patient ?: No - Lab Results Lab results reviewed: Yes Home Medications and Allergies Spironolactone 25 mg PO BID 09/21/13 Allergies/Adverse Reactions: Allergies Allergy/AdvReac Type Severity Reaction Status Date / Time NSAIDS (Non-Steroidal Allergy Severe Unknown Verified 03/30/24 14:06 Anti-Inflamma Anes History & Medical History - Anesthetic History Anesthesia Complications: reports: No previous complications - Medical History Cardiovascular: reports: None Pulmonary: reports: None Urinary: reports: None Musculoskeletal: reports: None Endocrine/Autoimmune: reports: None Skin: reports: None Smoking Status: Former smoker Psychosocial: reports: No issues indicated - Surgical History Orthopedic: reports: Other Results - EKG Results EKG Comparison: Reviewed EKG Exam General: Alert, Oriented x3 Dental: WNL Mouth Openin Fingerbreadth Neck Mobility: Normal Mallampati classification: II Thyromental Distance: 4-6 cm Respiratory: Lungs clear Cardiovascular: Regular rate Plan Anesthesia Type: Total IV Consent for Procedure(s) Verified and Reviewed: Yes Code Status: Attempt Resuscitation ASA classification: 1-Healthy patient Is this case an emergency?: No
[2024-03-31 12:15] LABS: HCG UR QUAL NEGATIVE
[2024-03-31] MEDS ORDERED: LIDOCAINE-MPF 2% 5 ML VIAL ONE (12:15)
[2024-03-31] MEDS ORDERED: PROPOFOL 200 MG/20 ML VIAL IVP ONE (12:51)
[2024-03-31 13:40] VITALS: BP 118/68; O2SAT 100
--- NOTE | 2024-03-31 14:32 | ANESTHESIA POST OP EVALUATION ---
Anesthesia Post Eval - Post Anesthesia Eval Vitals: Last Vital Signs Temp 36.1 C L 03/31/24 13:15 Pulse 76 03/31/24 13:30 Resp 16 03/31/24 13:30 BP 118/68 03/31/24 13:30 Pulse Ox 100 03/31/24 13:30 O2 Flow Rate CV Function Including HR & BP: Stable Pain Control: Satisfactory Nausea & Vomiting: Negative Mental Status: Baseline Respiratory Status: Airway Patent Hydration Status: Satisfactory Anesthesia Complications: None
== END 2024-03-31 11:23 | disposition home or self-care (01) ==
LOC: SDS 11:22
PROVIDERS: ATTEND Surgery
DX: K62.5 Hemorrhage of anus and rectum (principal); K57.30 Diverticulosis of large intestine without perforation or abscess without bleeding; Z80.0 Family history of malignant neoplasm of digestive organs; Z87.891 Personal history of nicotine dependence
CPT/HCPCS: 45378; 81025; J7120